=== PATIENT | female | born 1985 | race Caucasian/White ===

== ENCOUNTER 2019-06-07 17:55 | Inpatient (IN) | payer BC, OTHER ==
[~2019-06-07] VITALS: Ht 162.6 cm; Wt 58.5 kg
[2019-06-07 18:18] VITALS: BP_SYST 144
--- NOTE | 2019-06-07 18:22 | NUR ---
Patient to ER bed 07 to gown for evaluation. Side rails up.
--- NOTE | 2019-06-07 19:01 | NUR ---
Patient brought in complaining of abdominal pain with nausea, vomiting, diarrhea and dizziness x 3 days progressively worsening. Patient reports 4 episodes of vomitinign and diarrhea today. Patient has history of Crohn's disease with last flare up when she was 24. Currently on Humira and Pentasa. Pain 10/10, sharp stabbing. No other complaints/injuries per patient or as noted. will continue to monitor.
[2019-06-07] MEDS ORDERED: NACL 0.9% 1,000 ML IV ONE ×2 (19:23→20:00)
[2019-06-07] MEDS ORDERED: KETOROLAC TROMETHAMINE 30 MG VIAL IVP ONE (19:30)
[2019-06-07] MEDS ORDERED: ONDANSETRON HCL 4 MG/2 ML VIAL IVP ONE (19:30)
--- NOTE | 2019-06-07 19:35 | NUR ---
# 20 gauge angiocath placed to RAC. Use of asceptic technique. Opsite placed over site. Blood return noted. Blood for lab drawn from site. Flushed with 10 cc of normal saline. No evidence of infiltration noted. Patient tolerated well.
[2019-06-07] MEDS ORDERED: ADAL40SY SQ (19:39)
[2019-06-07] MEDS ORDERED: DEXT30TA10 PO (19:39)
[2019-06-07] MEDS ORDERED: OMEP40CA33 PO (19:39)
[2019-06-07] MEDS ORDERED: LAMO200T2 PO (19:39)
[2019-06-07] MEDS ORDERED: LORA2TAB95 PO (19:39)
[2019-06-07] MEDS ORDERED: MESA500C PO (19:39)
[2019-06-07] MEDS ORDERED: SERT100T PO (19:39)
[2019-06-07] MEDS ORDERED: BENI20 IM (19:40)
--- NOTE | 2019-06-07 19:43 | NUR ---
ER Dr. Wilcox at bedside examining patient.
[2019-06-07 19:56] LABS: BILIRUBIN,URINE NEGATIVE (NEGATIVE); BLOOD, URINE NEGATIVE (NEGATIVE); CLARITY/URINE CLEAR (CLEAR); COLOR,URINE YELLOW (YELLOW); GLUCOSE,URINE NEGATIVE (NEGATIVE); KETONES,URINE NEGATIVE (NEGATIVE); NITRITE, URINE NEGATIVE (NEGATIVE); PH,URINE 5.5 (5.0-8.0); PROTEIN URINE NEGATIVE (NEGATIVE); UROBILINOGEN,URINE 0.2 (0.2-1.0)
[2019-06-07 19:59] LABS: BASOPHILS % (AUTO) 0.2 % (0.0-2.0); EOSINOPHILS % (AUTO) 0.5 % (0.0-4.0); HEMATOCRIT 37.3 % (36-48); HEMOGLOBIN 12.5 g/dL (12.0-16.0); LYMPHOCYTES # (AUTO) 1.5 K/uL (1.0-5.5); LYMPHOCYTES % (AUTO) 31.8 % (20.5-51.5); MEAN CORPUSCULAR HEMOGLOBIN 31 pg (27-31); MEAN CORPUSCULAR HGB CONC 34 % (32-36); MEAN CORPUSCULAR VOLUME 91 fL (79.0-98.0); MONOCYTES # (AUTO) 0.4 K/uL (0.0-1.0); NEUTROPHILS # (AUTO) 2.9 K/uL (1.8-7.7); NEUTROPHILS % (AUTO) 59.5 % (40.0-70.0); PLATELET COUNT (AUTO) 237 K/uL (130-430); RED BLOOD CELL COUNT(AUTO) 4.08 MIL/uL (4.2-6.2); RED CELL DISTRIBUTION WIDTH 13.6 % (9.0-15.0); WHITE BLOOD COUNT (AUTO) 4.8 K/uL (4.8-10.8)
[2019-06-07] MEDS ORDERED: MORPHINE 4 MG/ML INJ. SYRINGE IVP ONE ×2 (20:00→20:30)
[2019-06-07 20:01] LABS: CALCIUM 8.9 mg/dL (8.4-11.0); CREATININE 0.62 mg/dL (0.55-1.30); POTASSIUM 3.9 mmol/L (3.5-5.1)
[2019-06-07 20:07] LABS: ALBUMIN 3.3 g/dL (3.4-4.8); TOTAL BILIRUBIN 0.1 mg/dL (0.0-1.0)
[2019-06-07 20:09] LABS: LEUKOCYTE ESTERASE ,URINE TRACE (NEGATIVE)
[2019-06-07 20:10] LABS: BACTERIA,URINE FEW /HPF (None Seen)
[2019-06-07 20:11] LABS: MUCUS,URINE None Seen /LPF (None Seen)
[2019-06-07 20:13] LABS: RBC,URINE NONE SEEN /HPF (0-3)
--- NOTE | 2019-06-07 21:07 | NUR ---
Medication reconciliation completed with information provided by patient. Any prior medication reconciliation on file was reviewed and corrected.
[2019-06-07] MEDS ORDERED: cefTRIAXone 1 GM in D5W 50 ML IV ONE (21:30)
[2019-06-07] MEDS ORDERED: cefTRIAXone 1 GM VIAL ONE (21:46)
[2019-06-07] MEDS ORDERED: fentaNYL CITRATE/PF 100 MCG/2 ML AMP IVP ONE (22:00)
--- NOTE | 2019-06-07 23:09 | NUR ---
Patient states she is full code.
--- NOTE | 2019-06-08 00:43 | NUR ---
Dr. Wilcox speaking to Dr. Quinn for admission.
[2019-06-08] MEDS ORDERED: NACL 0.9% 1,000 ML IV SCH (01:01)
--- NOTE | 2019-06-08 01:01 | NUR ---
Patient will be admitted to care of Dr. Quinn. Admitted to Med Surg unit. Will go to room 134 B. Belongings list completed. Summary report printed. Report will be given at bedside.
[2019-06-08] MEDS ORDERED: MORPHINE 2 MG/ML INJ. SYRINGE IVP PRN (01:15)
[2019-06-08 01:32] VITALS: BP_SYST 113
--- NOTE | 2019-06-08 01:32 | NUR ---
ADMISSION: The patient, YELENA FLORES, 33 y/o, F admitted by CHANDA GILL MD,WITH THE DIAGNOSIS OF CROHN'S EXACERBATION TO ROOM 134 B , was given written information regarding hospital policies, unit procedures and contact persons.
--- NOTE | 2019-06-08 02:25 | NUR ---
PAGED PAGING THE BRAND STRATEGIST PHYSICIAN, DR. GILL, FOR ORDERS AND SPOKE WITH DARIA
--- NOTE | 2019-06-08 03:10 | NUR ---
paged second page for Dr Navarro, dialed . s/w Joyce.
--- NOTE | 2019-06-08 03:22 | NUR ---
GI Consultation Paged Reason for consultation: crohn's exacerbation Was consult called: Yes Person who was notified: Darlene Consulting Physician: Dr Kearney; Dr Kenyon is on-call Export Freight Specialist Specialty: Gastroenterology Export Freight Specialist Ordered By: Dr Navarro
[2019-06-08] MEDS: MORPHINE 2 MG/ML INJ. SYRINGE IVP PRN ×3 (03:31→20:49)
[2019-06-08] MEDS: ONDANSETRON HCL 4 MG/2 ML VIAL IVP PRN ×3 (06:01→20:57)
[2019-06-08] MEDS ORDERED: LORazepam 1 MG TABLET PO PRN (07:30)
[2019-06-08 08:00] VITALS: BP_SYST 100
[2019-06-08] MEDS: HYDROmorphone 1 MG INJ. 1 MG/ML AMPUL IVP PRN ×6 (08:28→22:33)
[2019-06-08] MEDS: cefTRIAXone 1 GM IVPB PREMIX 50 ML IV SCH (08:34)
[2019-06-08] MEDS: MESALAMINE 400 MG CAPSULE.DR PO SCH ×2 (08:34→20:57)
[2019-06-08] MEDS: SERTRALINE HCL 50 MG TABLET PO SCH (08:38)
[2019-06-08] MEDS: LamoTRIgine 100 MG TABLET PO SCH (08:39)
[2019-06-08] MEDS ORDERED: PANTOPRAZOLE SODIUM 40 MG TAB PO SCH (09:00)
[2019-06-08] MEDS ORDERED: DICYCLOMINE HCL 20 MG/2 ML AMP IM SCH (09:15)
[2019-06-08] MEDS ORDERED: D5/0.45 NS 1,000 ML IV SCH (14:30)
[2019-06-08 14:57] VITALS: BP_SYST 115
[2019-06-08] MEDS ORDERED: HUMIRA 40 MG SUBCUT SCH (15:00)
[2019-06-08] MEDS ORDERED: COMMUNICATION ORDER XX ONE (15:00)
[2019-06-08] MEDS ORDERED: fentaNYL CITRATE/PF 100 MCG/2 ML AMP IVP ONE ×2 (15:30)
[2019-06-08] MEDS ORDERED: MIDAZOLAM HCL 5 MG/5 ML VIAL IVP ONE (15:30)
[2019-06-08] MEDS ORDERED: PROPOFOL 200MG/ 20ML VIAL (DIPRIVAN) IV ONE (15:30)
[2019-06-08] MEDS ORDERED: LR 1,000 ML IV.SOLN IV ONE (15:30)
[2019-06-08] MEDS ORDERED: DIATR MEGLU/DIATRIZ SOD 30 ML SOLUTION PO ONE (16:55)
--- NOTE | 2019-06-08 19:30 | NUR ---
Opening notes Pt asleep, respirations even and unlabored, no s/s distress noted. Saline lock R. FA 20G clear and patent. Call light within reach. Bed low, locked, siderails up x2. To monitor.
--- NOTE | 2019-06-08 20:07 | NUR ---
Off the floor for CT scan via wheelchair.
[2019-06-08] MEDS ORDERED: IOHEXOL 100 ML IV ONE (20:12)
--- NOTE | 2019-06-08 20:27 | NUR ---
Back from CT scan. No distress noted. Addendum: 06/09/19 at 0506 by Iman Lisa RN MG MINAYA removed catheter tip intact. Tolerated well.
[2019-06-08 20:47] VITALS: BP_SYST 112
[2019-06-08] MEDS: PANTOPRAZOLE SODIUM 40 MG/VIAL (PROTONIX) IVP SCH (20:48)
[2019-06-08] MEDS: POLYETHYLENE GLYCOL 3350, 17 GM/ POWD.PACK PO SCH (20:49)
--- NOTE | 2019-06-08 21:13 | NUR ---
Paged Pt requests for Ativan order. Paged Dr. Navarro, awaiting callback.
--- NOTE | 2019-06-08 21:15 | NUR ---
PAGED PAGING THE MANAGER SOFTWARE DEVELOPMENT PHYSICIAN, DR. GILL, FOR ORDERS, SPOKE WITH ANIA
--- NOTE | 2019-06-08 21:42 | NUR ---
Received MD callback Received callback from Dr. aNvarro and order rec'd for Ativan 1mg IVP x one. Will carry out.
[2019-06-08] MEDS ORDERED: LORazepam 2 MG/ML VIAL IVP ONE (21:45)
--- NOTE | 2019-06-08 22:33 | NUR ---
Pain Pt alert, awake, no s/s distress noted. Pt c/o 06/11 abd pain. Medicated with Dilaudid 1mg IVP as needed, VSS. Pt encouraged to call for assistance. at bedside. Call light within reach. To monitor.
--- NOTE | 2019-06-09 00:46 | NUR ---
Rounds Pt asleep, no s/s distress noted. Call light within reach. Safety measures maintained. Pt's at bedside.
[2019-06-09 01:57] VITALS: BP_SYST 114
[2019-06-09] MEDS: HYDROmorphone 1 MG INJ. 1 MG/ML AMPUL IVP PRN ×7 (01:57→20:15)
--- NOTE | 2019-06-09 01:57 | NUR ---
Pain Pt c/o severe abd pain, medicated with Dilaudid 1mg IVP as needed. IVF infusing at ordered rate on R. FA 20G no s/s infiltration. at bedside. Call light within reach. To monitor.
--- NOTE | 2019-06-09 05:04 | NUR ---
Pain Pt awake, ambulated to the bathroom. Pt c/o abd pain 8/10, medicated with Dilaudid 1mg IVP as needed. IVF infusing R. FA 22G no s/s infiltration. Call light within reach. To monitor.
[2019-06-09 06:31] LABS: HEMATOCRIT 31.9 % (36-48); HEMOGLOBIN 10.7 g/dL (12.0-16.0); MEAN CORPUSCULAR HEMOGLOBIN 31 pg (27-31); MEAN CORPUSCULAR HGB CONC 34 % (32-36); MEAN CORPUSCULAR VOLUME 92 fL (79.0-98.0); PLATELET COUNT (AUTO) 189 K/uL (130-430); RED BLOOD CELL COUNT(AUTO) 3.49 MIL/uL (4.2-6.2); RED CELL DISTRIBUTION WIDTH 13.3 % (9.0-15.0); WHITE BLOOD COUNT (AUTO) 2.4 K/uL (4.8-10.8)
--- NOTE | 2019-06-09 06:41 | NUR ---
Closing notes Pt asleep, respirations even and unlabored, no s/s distress noted. IVF infusing at ordered rate R FA 20G clear and patent. All needs met throughout the night. Pt denies having a BM during the night. Call light within reach. Family at bedside. To endorse to AM nurse.
[2019-06-09 06:42] LABS: ALANINE AMINOTRANSFERASE 15 U/L (12-78); ALBUMIN 2.9 g/dL (3.4-4.8); ASPARTATE AMINOTRANSFERASE 16 U/L (10-37); CALCIUM 8.6 mg/dL (8.4-11.0); CHLORIDE 112 mmol/L (98-107); CREATININE 0.66 mg/dL (0.55-1.30); GLUCOSE 103 mg/dL (70-99); POTASSIUM 3.9 mmol/L (3.5-5.1); SODIUM SERUM 141 mmol/L (136-145); TOTAL BILIRUBIN 0.2 mg/dL (0.0-1.0); UREA NITROGEN, BLOOD 3 mg/dL (8-21)
[2019-06-09 06:43] LABS: ANION GAP < 3 (5-15); GFR AFRICAN AMERICAN 132 mL/min (>90)
[2019-06-09 07:22] LABS: ERYTHROCYTE SEDIMENTATION RATE 3 MM/HR (0-20)
[2019-06-09 07:42] VITALS: BP_SYST 107
[2019-06-09] MEDS: PANTOPRAZOLE SODIUM 40 MG/VIAL (PROTONIX) IVP SCH ×2 (07:50→20:41)
[2019-06-09] MEDS: cefTRIAXone 1 GM IVPB PREMIX 50 ML IV SCH (07:51)
--- NOTE | 2019-06-09 08:00 | NUR ---
AM rounds: Awake, oriented. Complaints of sharp throbbing abdominal pain /, denies nausea nor vomiting. IV fluids of D51/2 NS at 75 cc/hr infusing on the right forearm gauge 22 angiocath, patent, intact, no redness noted. Encouraged patient to eat even just small amount. Has ensure with meals. Call light within reach.
[2019-06-09] MEDS: D5/0.45 NS 1,000 ML IV SCH ×2 (08:02→20:42)
[2019-06-09] MEDS: LamoTRIgine 100 MG TABLET PO SCH (08:02)
[2019-06-09] MEDS: SERTRALINE HCL 50 MG TABLET PO SCH (08:02)
[2019-06-09] MEDS: POLYETHYLENE GLYCOL 3350, 17 GM/ POWD.PACK PO SCH ×2 (08:02→20:42)
[2019-06-09] MEDS: MESALAMINE 400 MG CAPSULE.DR PO SCH ×2 (08:06→20:41)
--- NOTE | 2019-06-09 08:55 | NUR ---
CONSULTATION PAGED REASON FOR CONSULTATION:ANXIETY, DEPRESSION WAS CONSULT CALLED?Y PERSON WHO WAS NOTIFIED:JEAN PAUL CONSULTING PHYSICIAN:SITA KHAN (ZAINAB JAVIER CONCRETE GUN OPERATOR) ICT MANAGERS SPECIALTY:PSYCHE ICT MANAGERS PHONE NUMBER:[phone] REQUESTING PHYSICIAN:CALLIE LOTT
--- NOTE | 2019-06-09 10:15 | NUR ---
Rounds; Patient is in pain 6/10, crying. Offered morphine, but prefers to wait for the dilaudid which is not due yet. Patient says she will wait for the dilaudid.
[2019-06-09 10:19] LABS: ATYPICAL LYMPHOCYTES % 0 % (0-0); BAND % (MANUAL) 0 % (0-6); BASOPHILS % (MANUAL) 0 % (0-2); EOSINOPHILS % (MANUAL) 1 % (0-7); LYMPHOCYTES % (MANUAL) 48 % (20-46); MONOCYTES % (MANUAL) 8 % (0-11)
[2019-06-09 10:53] VITALS: BP_SYST 103
--- NOTE | 2019-06-09 11:00 | NUR ---
Pain management: Medicated with dilaudid 1 mg for abdominal pain. Patient is ambulatory to the bathroom with the steady gait.
--- NOTE | 2019-06-09 11:51 | NUR ---
Case Management Updated Nick CM by phone.
[2019-06-09] MEDS: ONDANSETRON HCL 4 MG/2 ML VIAL IVP PRN (14:07)
--- NOTE | 2019-06-09 14:11 | NUR ---
Diet: Patient had 2 cups of jelo, ensure. Wants to try pudding, informed patient that it does not fall under clear liquid.
[2019-06-09] MEDS ORDERED: DICYCLOMINE HCL 10 MG CAPSULE PO PRN (14:30)
[2019-06-09 16:39] VITALS: BP_SYST 101
[2019-06-09] MEDS ORDERED: SODIUM PHOSPHATE,MONO-DIBASIC 133 ML ENEMA RC ONE (17:00)
--- NOTE | 2019-06-09 18:28 | NUR ---
End of shift: Seen by Dr. Kenyon. Fleet enema given, had small amount of soft BM.
[2019-06-09 19:00] VITALS: BP_SYST 103
--- NOTE | 2019-06-09 19:15 | NUR ---
change of shift.pt.presents quiescent affect.pt viewing tv programming.@bedside.pt.presents iv access;intact;patent iv fluids infusing.pt.presents diet status;advanced:full liquids.pt.presents process;diagnosis;chron's/colitis.pt.capable to ambulated w/out assistance.call light/telephone w/in the reach of the pt.
--- NOTE | 2019-06-09 19:30 | NUR ---
i have disconnected the iv fluids.pt.to shower.pt.capable to ambulate steady gait;w/out assistance.
[2019-06-09 20:00] VITALS: BP_SYST 103
--- NOTE | 2019-06-09 20:00 | NUR ---
pt.return to bedside.pt.assessed v/s assessed;values w/in normal limits.i have administered dilaudid;1mg ivp;to f/u re;pain medication efficacy per pain mgx protocol.i have apprised the pt.that snacks/beverages are available w/in the shift.pt.had requested juice;apple, pudding;vanilla,jello.i have provided the snacks.iv fluids re-connected.no additional requests posited @this hour.general status stable. respiratory status stable@room air.02-sat%=100%.call light/telephone w/in reach of the pt.i have provide the room telephone indication.pt.had returned the demonstration.
--- NOTE | 2019-06-09 20:30 | NUR ---
pt.has utilized the restroom.pt.capable to ambulate w/out assistance.
--- NOTE | 2019-06-09 21:00 | NUR ---
2100pmedications administered.pty had requested additional snacks.i have provide the snacks. miralax administered:mixture w/apple juice.
--- NOTE | 2019-06-09 21:30 | NUR ---
pt.has utilized the restroom.pt.capable to ambulate w/out assistance.
--- NOTE | 2019-06-09 22:00 | NUR ---
pt.assessed.pt.presents quiescent affect;calm,.pt.viewing tv programming.no requests posited @this hour. general status stable.respiratory status stable.call light/telephone w/in reach of the pt. Addendum: 06/10/19 at 0355 by Kamaljit Casey RN pt.had requested ativan;ivp.i apprised the pt.that the ativan order is ativan;3mg po q-8hrs/p;pt.had requested dilaudid;2mg ivp. to page re;pt's requests.pt.stated the ativan ivp was efficacious last night;06/08/19.
--- NOTE | 2019-06-09 22:30 | NUR ---
pt.had utilized the restroom.i have reviewed the dr's orders;the md has ordered stool sample;wbc,cx/c-diff.i have apprised the pt.that a stool sample is needed.the pt apprised me that she had provided a stool sample earlier w/in the day-shift.i cannot locate the confirmation of a stool sample collection w/in the day shift. Addendum: 06/10/19 at 0410 by Kamaljit Casey RN i have provided/placed the stool sample recepticle;hat in the toilet.i have apprised the pt.
[2019-06-09] MEDS ORDERED: HYDROmorphone 2 MG/ML VIAL IVP SCH (23:00)
[2019-06-09] MEDS ORDERED: LORazepam 2 MG/ML VIAL IVP SCH (23:00)
--- NOTE | 2019-06-09 23:00 | NUR ---
galileo martinez had return the page;i apprised of the pt's requests;[id number] ivp.the dilaudid 1mg is not completely efficacious. ordered dilaudid;2mg ivp x1.i apprised that the pt.preference is ativan;1mg ivp;it was administered 06/08/19@security shift manager and was efficacious. ordered ativan;1mg ivp x1 and place the pt. upon continuos pulse oximeter to monitor the 02-sat;2/t administration of the medicationss;dilaudid/ativan.i have administered dialudid;2mg ivp;to f/u re;pain medication efficacy and ativan:1mg ivp .i have placed the pt.upon pulse oximeter;continuous.i have apprised the pt.for the o2-sat%monitoring.
[2019-06-10] VITALS (7 sets, daily range): BP systolic 96–133
--- NOTE | 2019-06-10 | NUR ---
pt.assessed pt.presents quiescent affect;calm,somnolent.o2-sat%=98%.iv fluids infusing.general status stable.respiratory status stable;unlabored w/in normal limits;parameters.breathing pattern/character w/in normal limits.
--- NOTE | 2019-06-10 01:30 | NUR ---
pt.had awakened pt.had soiled the bed;w stool.pt.requested to shower.bed linen changed . Addendum: 06/10/19 at 0423 by Kamaljit Casey RN v/s assessed/values w/in normal limits;b/p values note low;pt.presents low value b/p as her normal limits per review of the v/s graphics.
--- NOTE | 2019-06-10 02:00 | NUR ---
pt,assessd.pt.presents quiescent affect;calm.somnolent./iv fluids infusing.general staus stable.respiratory status stable:02-sat%=100%.call light/telephone w/in reach of the pt.
[2019-06-10] MEDS: HYDROmorphone 1 MG INJ. 1 MG/ML AMPUL IVP PRN ×7 (02:03→21:04)
--- NOTE | 2019-06-10 04:00 | NUR ---
pt.has utilized the restroom.pt assessed.pt.has produced the stool sample;i have sent to lab.iv fluids infusing.no requests posited at this hour.pt.presents quiescent affect;calm.general status stable.respiratory status stable.call light/telephone w/in reach of the pt.
--- NOTE | 2019-06-10 05:00 | NUR ---
pt.had requested pain medication.i have administered;dilaudid;1mg ivp.to f/u re;pain medication efficacy. no additional requests posited @this hour.
[2019-06-10 05:44] LABS: BASOPHILS % (AUTO) 0.2 % (0.0-2.0); EOSINOPHILS # (AUTO) 0.1 K/uL (0.0-0.4); EOSINOPHILS % (AUTO) 1.7 % (0.0-4.0); HEMOGLOBIN 10.7 g/dL (12.0-16.0); LYMPHOCYTES # (AUTO) 1.3 K/uL (1.0-5.5); LYMPHOCYTES % (AUTO) 34.3 % (20.5-51.5); MEAN CORPUSCULAR HEMOGLOBIN 31 pg (27-31); MEAN CORPUSCULAR HGB CONC 34 % (32-36); MEAN CORPUSCULAR VOLUME 92 fL (79.0-98.0); MONOCYTES # (AUTO) 0.4 K/uL (0.0-1.0); MONOCYTES % (AUTO) 9.3 % (1.7-9.3); NEUTROPHILS # (AUTO) 2.1 K/uL (1.8-7.7); NEUTROPHILS % (AUTO) 54.5 % (40.0-70.0); PLATELET COUNT (AUTO) 192 K/uL (130-430); RED BLOOD CELL COUNT(AUTO) 3.46 MIL/uL (4.2-6.2); RED CELL DISTRIBUTION WIDTH 13.4 % (9.0-15.0)
--- NOTE | 2019-06-10 06:12 | NUR ---
pt assessed.pt.presents quiescent affect;calm,somnolent.iv access;intact;patent.iv fluids infusing.general status stable.respiratory status stable;unlabored.pt.capable to reposition self.call light/telephone w/in reach of the pt.
[2019-06-10 07:16] LABS: WHITE BLOOD COUNT (AUTO) 3.9 K/uL (4.8-10.8)
--- NOTE | 2019-06-10 07:58 | NUR ---
INITIAL NOTE RECEIVED PATIENT FROM TOWER EQUIPMENT INSTALLER. PATIENT RESTING IN BED. EASILY AROUSABLE. A/OX4. PATIENT C/O ABDOMINAL PAIN; WILL MEDICATE. PT REFUSE COOLING MEASURES. ABLE TO MAKE NEEDS KNOWN. NO ACUTE DISTRESS. RESPIRATION EVEN AND UNLABORED. SKIN WARM AND DRY. IV INTACT AND PATENT. PT OLIVIA IV FLUID ORDERED. BED IN LOW AND LOCKED POSITION. SIDERAIL UPX2. BED ALARM ON. CALL LIGHT IN REACH. CONT TO MONITOR.
[2019-06-10] MEDS: cefTRIAXone 1 GM IVPB PREMIX 50 ML IV SCH (08:20)
[2019-06-10] MEDS: POLYETHYLENE GLYCOL 3350, 17 GM/ POWD.PACK PO SCH ×2 (08:20→21:00)
[2019-06-10] MEDS: PANTOPRAZOLE SODIUM 40 MG/VIAL (PROTONIX) IVP SCH ×2 (08:20→21:00)
[2019-06-10] MEDS: ONDANSETRON HCL 4 MG/2 ML VIAL IVP PRN ×2 (08:21→21:01)
[2019-06-10] MEDS: LamoTRIgine 100 MG TABLET PO SCH (08:21)
[2019-06-10] MEDS: SERTRALINE HCL 50 MG TABLET PO SCH (08:21)
[2019-06-10] MEDS: MESALAMINE 400 MG CAPSULE.DR PO SCH ×2 (08:21→21:00)
--- NOTE | 2019-06-10 08:25 | NUR ---
MEDS ALL DUE MEDS ADMINISTERED; OLIVIA WELL. DILAUDID ADMINISTERED FOR SEVERE ABDOMINAL PAIN; OLIVIA WELL. BP 112/65 HR 82. CONT TO MONITOR
[2019-06-10] MEDS: D5/0.45 NS 1,000 ML IV SCH (11:43)
--- NOTE | 2019-06-10 11:45 | NUR ---
NOTE PATIENT C/O SEVERE ABDOMINAL PAIN. PATIENT REFUSED ICE PACK. DILAUDID ADMINISTERED ORDERED FOR PAIN; OLIVIA WELL. VS STABLE. ALL NEEDS MET. BED IN LOW AND LOCKED POSITION. SIDERAIL UP X2. BED ALARM ON. CONT TO MONITOR
--- NOTE | 2019-06-10 11:56 | NUR ---
Dietitian Recommendations *Recommend continuing Full Liquid diet per MD orders. *If/when medically appropriate, advance diet to Soft Low Fiber Low Fat Gluten Free. *Consider snacks in between meals. Please see Nutritional Assessment for details. JERI WU
[2019-06-10] MEDS: LORazepam 1 MG TABLET PO PRN (14:21)
--- NOTE | 2019-06-10 14:50 | NUR ---
MED PATIENT C/O PAIN TO ABDOMEN. VS STABLE. PAIN MEDICATION ADMINISTERED ORDERED, OLIVIA WELL. ALL NEEDS MET. CONT TO MONITOR
--- NOTE | 2019-06-10 15:00 | NUR ---
PAGED (PSYCH) REGARDING CONSULT. AWAITING TO BE SEEN BY .
--- NOTE | 2019-06-10 16:20 | NUR ---
SEEN AND EXAMINED BY AT BEDSIDE. WILL ORDER EGD FOR TOMORROW. EXPLAINED TO PATIENT
--- NOTE | 2019-06-10 16:31 | NUR ---
Financial Services Representative: met with pt. who has depression anxiety AGATE SETTER met with pt. who confirmed that she has been formally Dx. in 2009 with Anxiety Depression and Bipolar. She stated she sees a psychiatrist once a month Fransisco Lowe from [facility]. She has been seeing him for about 6-7 yrs. She stated that she takes her meds. on a regular basis. She denied ever feeling suicidal as she has a 1 and 3 year old at home with her fiance. Pt. has family support as her parents reside nearby. Pt. stated she did not need any resources. Pt. did not have any questions for AGATE SETTER who will remain available as needed.
--- NOTE | 2019-06-10 18:05 | NUR ---
PAIN MED PATIENT C/O SEVERE PAIN TO ABDOMEN. PT REFUSE ICE PACK. VS STABLE. DILAUDID ADMINISTERED ORDERED, OLIVIA WELL. CONT TO MONITOR. CALL LIGHT IN REACH
--- NOTE | 2019-06-10 19:15 | NUR ---
CLOSING NOTE PATIENT RETURNING FROM BATHROOM WITH STEADY GAIT. STABLE. NO ACUTE DISTRESS. NO SOB. RESPIRATION EVEN AND UNLABORED. SKIN WARM AND DRY TO TOUCH. IV INTACT AND PATENT. OLIVIA IVF ORDERED. INFORMED PATIENT TO BE NPO AFTER MIDNIGHT DUE TO EGD PROCEDURE TOMORROW. ALL NEEDS MET. CALL LIGHT IN REACH. ENDORSED TO MEGHAN HERNADEZ
--- NOTE | 2019-06-10 19:20 | NUR ---
OPENING NOTE RECEIVED CARE OF PT AND SBAR REPORT. PATIENT RETURNING FROM BATHROOM WITH STEADY GAIT. VSS. NO ACUTE DISTRESS. NO SOB. RESPIRATION EVEN AND UNLABORED. SKIN WARM AND DRY TO TOUCH. PT REPORTS TOLERABLE LEVEL OF PAIN AT THIS TIME. IV INTACT AND PATENT. INFORMED PATIENT TO BE NPO AFTER MIDNIGHT DUE TO EGD PROCEDURE TOMORROW. SAFETY PRECAUTIONS IN PLACE. CALL LIGHT IN REACH. WILL MONITOR.
--- NOTE | 2019-06-10 20:30 | NUR ---
SHOWER. PT TOOK SHOWER. SUPPLIES PROVIDED. NO S/S OF DISTRESS. SAFETY MAINTAINED. WILL MONITOR.
--- NOTE | 2019-06-10 21:04 | NUR ---
PAIN/DILAUDID PT REPORTED SEVERE PAIN. DILAUDID 1 MG IVP ADMINISTERED. PT REPORTING SHE DID NOT "TASTE" THE NORMAL SALINE AND "DOESN'T FEEL" THE DILAUDID. NEW IV SITE TO BE STARTED PT BELIEVES SITE IS INFILTRATED.
--- NOTE | 2019-06-10 21:45 | NUR ---
IV PLACEMENT: #22 gauge angiocath placed to LEFT HAND BY SATYA LEE. Use of asceptic technique. Opsite placed over site. Blood return noted. Flushed with 10 cc of normal saline. No evidence of infiltration noted. Patient tolerated WELL.
[2019-06-10] MEDS: MORPHINE 2 MG/ML INJ. SYRINGE IVP PRN (22:00)
[2019-06-11] VITALS: BP_SYST 103
[2019-06-11] MEDS: HYDROmorphone 1 MG INJ. 1 MG/ML AMPUL IVP PRN ×7 (00:05→21:06)
[2019-06-11] MEDS: D5/0.45 NS 1,000 ML IV SCH ×3 (00:05→15:58)
--- NOTE | 2019-06-11 00:05 | NUR ---
NPO/PAIN PT REPORTED SEVERE PAIN. DILAUDID 1 MG IVP ADMINISTERED. MEDICATION EXPLAINED TO PT, PT VERBALIZED UNDERSTANDING. NPO CONE PLACED AT BEDSIDE, PT EDUCATED REGARDING NPO STATUS. SAFETY MAINTAINED. WILL MONITOR.
--- NOTE | 2019-06-11 03:27 | NUR ---
PAIN/DILAUDID PT REPORTED SEVERE PAIN. DILAUDID 1 MG IVP ADMINISTERED. SAFETY MAINTAINED. CALL LIGHT IS WITH PT. WILL MONITOR.
[2019-06-11 05:35] LABS: PROTHROMBIN TIME 10.2 SECS (9.5-12.5)
--- NOTE | 2019-06-11 06:28 | NUR ---
CLOSING NOTE PT GIVEN DILAUDID 1 MG IVP FOR SEVERE PAIN. PAIN MANAGED THROUGHOUT SHIFT. VSS. PT NPO FOR EGD TODAY. NO S/S OF ACUTE DISTRESS. BREATHING IS UNLABORED. SAFETY AND FALL PRECAUTIONS MAINTAINED. ALL NEEDS MET DURING SHIFT. WILL ENDORSE TO DAY SHIFT RN.
--- NOTE | 2019-06-11 07:50 | NUR ---
opening note patient is resting in bed, alert and oriented, assessment completed, educated fire control technician g light system and plan of care, patient verbalized understanding, IV fluids running, patient is NPO for EGD today, patient verbalized understanding, fall/safety precautions in place.
[2019-06-11 08:00] VITALS: BP_SYST 107; BP_SYST 123
[2019-06-11] MEDS: POLYETHYLENE GLYCOL 3350, 17 GM/ POWD.PACK PO SCH ×2 (09:00→21:00)
[2019-06-11] MEDS: MESALAMINE 400 MG CAPSULE.DR PO SCH ×2 (09:35→21:04)
[2019-06-11] MEDS: cefTRIAXone 1 GM IVPB PREMIX 50 ML IV SCH (09:35)
[2019-06-11] MEDS: PANTOPRAZOLE SODIUM 40 MG/VIAL (PROTONIX) IVP SCH ×2 (09:35→21:05)
[2019-06-11] MEDS: LamoTRIgine 100 MG TABLET PO SCH (09:35)
[2019-06-11] MEDS: SERTRALINE HCL 50 MG TABLET PO SCH (09:35)
--- NOTE | 2019-06-11 09:35 | NUR ---
medications I talked to the GI lab, patient's EGD will be at 1500 and it is okay for her to take her medications, patient verbalized understanding, educated on medication uses and side effects, patient verbalized understanding, no other needs addressed at this time, fall/safety precautions in place, IV fluids running, Dr Briscoe came for rounds.
--- NOTE | 2019-06-11 10:22 | NUR ---
CONSULTATION PAGED/CALLED Reason for Consultation: FOLLOW UP Person Who was Notified: SPOKE TO AMRIT FROM OFFICE. Consulting Physician: Boiling House Hand Specialty: PSYCH Ordering Physician:
--- NOTE | 2019-06-11 10:28 | NUR ---
CONSULTATION PAGED/CALLED Reason for Consultation: FOLLOW UP Person Who was Notified: SPOKE TO AMRIT FROM OFFICE. Consulting Physician: Music Industry Internship Specialty: PSYCH Ordering Physician:
[2019-06-11] MEDS: MORPHINE 2 MG/ML INJ. SYRINGE IVP PRN ×4 (10:33→22:35)
--- NOTE | 2019-06-11 11:10 | NUR ---
rounds assisted patient with going to the bathroom and back to bed, no other needs addressed at this time, IV fluids running, fall/safety precautions in place.
[2019-06-11 12:30] VITALS: BP_SYST 117
--- NOTE | 2019-06-11 13:48 | NUR ---
patient off unit went to OR for EGD.
[2019-06-11] MEDS ORDERED: ONDANSETRON HCL 4 MG/2 ML VIAL IVP ONE (13:50)
[2019-06-11] MEDS ORDERED: MIDAZOLAM HCL 5 MG/5 ML VIAL IVP ONE (13:50)
[2019-06-11] MEDS ORDERED: LR 1,000 ML IV.SOLN IV ONE (13:50)
[2019-06-11] MEDS ORDERED: PROPOFOL 200MG/ 20ML VIAL (DIPRIVAN) IV ONE (13:50)
[2019-06-11] MEDS ORDERED: fentaNYL CITRATE/PF 100 MCG/2 ML AMP IVP ONE (13:50)
[2019-06-11] MEDS ORDERED: LR 1,000 ML IV SCH (14:51)
[2019-06-11] MEDS ORDERED: HYDROmorphone 1 MG INJ. 1 MG/ML AMPUL IVP PRN (15:00)
[2019-06-11] MEDS ORDERED: HYDROmorphone 2 MG/ML VIAL IVP PRN ×2 (15:00)
[2019-06-11] MEDS ORDERED: MEPERIDINE HCL/PF 25 MG/ML DISP.SYRIN IVP PRN (15:00)
--- NOTE | 2019-06-11 15:30 | NUR ---
patient back on unit in stable condition.
[2019-06-11] MEDS: ONDANSETRON HCL 4 MG/2 ML VIAL IVP PRN (16:05)
[2019-06-11 16:44] VITALS: BP_SYST 118
--- NOTE | 2019-06-11 17:06 | NUR ---
prn pain medication I spoke to Dr Briscoe about pharmacy having to discontinued her PRN MD timothy okayed for her to continue with the pain medication, educated patient on med use and side effects, patient verbalized understanding, no other needs at this time, fall/safety precautions in place, IV fluids running.
[2019-06-11 17:40] VITALS: BP_SYST 118
--- NOTE | 2019-06-11 18:49 | NUR ---
closing note patient is resting in bed, eating her dinner, IV fluids running, patient was given pain medication earlier, no other needs addressed at this time, fall/safety precautions in place, will endorse report to noc shift nurse to continue with care, patient ambulates steady to the bathroom.
--- NOTE | 2019-06-11 19:35 | NUR ---
OPENING NOTE RECEIVED CARE OF PT AND SBAR REPORT. PT IS RESTING IN BED. VSS. NO ACUTE DISTRESS. NO SOB. RESPIRATION EVEN AND UNLABORED. SKIN WARM AND DRY TO TOUCH. NO S/S OF PAIN AT THIS TIME. IV INTACT AND PATENT. SAFETY PRECAUTIONS IN PLACE. CALL LIGHT IN REACH. WILL MONITOR.
[2019-06-11 20:00] VITALS: BP_SYST 116
--- NOTE | 2019-06-11 20:35 | NUR ---
SHOWER PT TOOK A SHOWER WITH ASSISTANCE FROM MISSAEL NAVAS.
--- NOTE | 2019-06-11 21:00 | NUR ---
IV RE-INSERTION: Complaining of pain to IV site. Restarted on RIGHT FOREARM. Successful after 1 attempt. Resumed current IVF of D51/2NS and regulated @ 75 CC per hour. Will observe for any signs of infiltration.
[2019-06-11] MEDS: LORazepam 1 MG TABLET PO PRN (22:35)
--- NOTE | 2019-06-11 22:35 | NUR ---
SNACKS/PRN MEDICATIONS PT BROUGHT VANILLA PUDDINGS AND JELLO PER REQUEST. PT REQUESTING MORPHINE FOR MODERATE ABDOMINAL PAIN AND ATIVAN FOR ANXIETY. PT GIVEN 2 MG OF MORPHINE IVP FOR MODERATE PAIN ORDERED. PT ALSO GIVEN ATIVAN 3 MG PO FOR AGITATION/ANXIETY. MEDICATIONS AND POTENTIAL SIDE EFFECTS EXPLAINED. PT VERBALIZED UNDERSTANDING. SAFETY AND FALL PRECAUTIONS ARE IN PLACE. WILL MONITOR.
[2019-06-12] MEDS: HYDROmorphone 1 MG INJ. 1 MG/ML AMPUL IVP PRN ×8 (00:35→21:57)
--- NOTE | 2019-06-12 00:35 | NUR ---
PAIN/DILAUDID PT REQUESTING DILAUDID FOR SEVERE ABDOMINAL PAIN. DILAUDID 1 MG IVP ADMINISTERED. PT IS RESTING IN BED. VSS. NO S/S OF ACUTE DISTRESS. PT ENCOURAGED TO CALL FOR ASSISTANCE. CALL LIGHT IS WITH PT. WILL MONITOR.
[2019-06-12 02:00] VITALS: BP_SYST 119
--- NOTE | 2019-06-12 02:40 | NUR ---
SLEEPING PT RESTING IN BED WITH EYES CLOSED. VISIBLE SYMMETRICAL RISE AND FALL OF CHEST TO ROOM AIR, BREATHING IS UNLABORED. NO S/S OF ACUTE DISTRESS. NO SIGN OF PAIN AT THIS TIME. PT APPEARS COMFORTABLE. SAFETY AND FALL PRECAUTIONS ARE IN PLACE. WILL MONITOR.
--- NOTE | 2019-06-12 03:36 | NUR ---
PAIN/DILAUDID PT REQUESTING DILAUDID FOR SEVERE ABDOMINAL PAIN. DILAUDID 1 MG IVP ADMINISTERED. PT IS RESTING IN BED. VSS. NO S/S OF ACUTE DISTRESS. PT DENIES FURTHER NEEDS. PT ENCOURAGED TO CALL FOR ASSISTANCE. CALL LIGHT IS WITH PT. WILL MONITOR.
[2019-06-12] MEDS: D5/0.45 NS 1,000 ML IV SCH ×3 (03:39→20:49)
--- NOTE | 2019-06-12 06:58 | NUR ---
CLOSING NOTE PT RESTING IN BED. PAIN MEDICATION ADMINISTERED. PT TOLERATED WELL. NO S/S OF ACUTE DISTRESS. PT TOLERATING ROOM AIR WELL, NO SOB . IVF INFUSING AT ORDERED RATE. ALL NEEDS MET DURING SHIFT. SAFETY MAINTAINED. WILL ENDORSE TO DAY SHIFT RN.
--- NOTE | 2019-06-12 07:45 | NUR ---
opening note patient is resting in bed, alert and oriented, assessment completed, educated blue print control clerk light system and plan of care, patient verbalized understanding, IV fluids running, fall/safety precautions in place, patient refused miralax at this time and patient requested that I not bring her scheduled medications until her prn dilaudid is due.
[2019-06-12 08:14] VITALS: BP_SYST 104
[2019-06-12] MEDS: POLYETHYLENE GLYCOL 3350, 17 GM/ POWD.PACK PO SCH ×2 (09:00→20:04)
[2019-06-12] MEDS: cefTRIAXone 1 GM IVPB PREMIX 50 ML IV SCH (09:39)
--- NOTE | 2019-06-12 09:40 | NUR ---
scheduled and prn medications patient is resting in bed, educated on medication uses and side effects, patient verbalized understanding, no other needs addressed at this time, IV fluids running, fall/safety precautions in place.
[2019-06-12] MEDS: MESALAMINE 400 MG CAPSULE.DR PO SCH ×2 (09:41→21:50)
[2019-06-12] MEDS: PANTOPRAZOLE SODIUM 40 MG/VIAL (PROTONIX) IVP SCH ×2 (09:41→19:54)
[2019-06-12] MEDS: LamoTRIgine 100 MG TABLET PO SCH (09:41)
[2019-06-12] MEDS: SERTRALINE HCL 50 MG TABLET PO SCH (09:41)
[2019-06-12] MEDS: ONDANSETRON HCL 4 MG/2 ML VIAL IVP PRN ×2 (09:49→19:54)
[2019-06-12 11:50] VITALS: BP_SYST 111
--- NOTE | 2019-06-12 11:51 | NUR ---
rounds patient is resting in bed, no signs of distress, no needs addressed at this time, IV fluids running, fall/safety precautions in place.
--- NOTE | 2019-06-12 12:40 | NUR ---
Dr Medina at the bedside about consult, spoke to the patient.
[2019-06-12 14:11] VITALS: BP_SYST 117
[2019-06-12] MEDS: MORPHINE 2 MG/ML INJ. SYRINGE IVP PRN ×4 (14:11→23:14)
--- NOTE | 2019-06-12 14:43 | NUR ---
Dr Johnson rounds came to see patient, explained to him about the pain medications that the patient gets and informed him that she does sleep after I given her the medications and patient sets an alarm for when the next one is due and those are the times that she wakes up other than that she is well rested after the medication.
[2019-06-12 15:12] VITALS: BP_SYST 117
--- NOTE | 2019-06-12 15:43 | NUR ---
prn pain medication patient is resting in bed, educated patient on med use and side effects, patient verbalized understanding, no other needs at this time, fall/safety precautions in place, IV fluids running.
[2019-06-12] MEDS ORDERED: BISACODYL 5 MG TABLET.DR (DULCOLAX) PO ONE (17:00)
--- NOTE | 2019-06-12 17:23 | NUR ---
medication patient is resting in bed, educated patient on med uses and side effects, patient verbalized understanding, no other needs at this time, fall/safety precautions in place, IV fluids running.
[2019-06-12] MEDS ORDERED: GOLYTELY / COLYTE SOLUTION 4 LITERS PO ONE (18:00)
--- NOTE | 2019-06-12 18:56 | NUR ---
closing note patient is resting in bed, eating her dinner, IV fluids running, patient was given pain medication, started on golytly for colonoscopy tomorrow 1500, patient will be NPO after midnight, no other needs addressed at this time, fall/safety precautions in place, will endorse report to noc shift nurse to continue with care, patient ambulates steady to the bathroom.
--- NOTE | 2019-06-12 19:25 | NUR ---
INITIAL NOTE RECEIVED PATIENT AWAKE, ALERT AND ORIENTED. NO SOB NOTED. COMPLAIN OF CONSTANT ABDOMINAL PAIN DUE TO HER DIAGNOSIS AND MILD NAUSEA. WILL MEDICATE FOR NAUSEA AND PAIN. VS STABLE. AMBULATES WITH STEADY GAIT. SKIN INTACT. NO PERIPHERAL EDEMA NOTED. IVF INFUSING. PATIENT IS ON CLEAR LIQUID AT THIS TIME AND RECEIVING BOWEL PREP FOR COLONOSCOPY TOMORROW. NPO AFTER MIDNIGHT, PATIENT IS AWARE. CARE AND MONITORING WILL BE PROVIDED PER PROTOCOL. CALL LIGHT WITHIN REACH. BED ALARM OFF PER PATIENT'S REQUEST. BED AT LOWEST POSITION AT ALL TIMES. NEEDS ATTENDED. KEPT WARM AND COMFORTABLE.
[2019-06-12 20:00] VITALS: BP_SYST 128
--- NOTE | 2019-06-12 20:00 | NUR ---
NAUSEA AND PAIN MED MEDICATED FOR NAUSEA AND ABDOMINAL PAIN. WILL CONTINUE TO MONITOR. PT EXPLAINED TO ME HER PAIN MEDICATION REGIMEN. DUE MEDS GIVEN WELL, TOLERATED WELL. NEEDS ATTENDED.
--- NOTE | 2019-06-12 21:20 | NUR ---
SHOWER PATIENT HAD A SHOWER. RESUMED IVF. GIVEN ICE WATER AND REMINDED ME OF HER PAIN MEDICATION ALONG WITH ANXIETY MED IN 30 MINS. NO OTHER COMPLAINTS. AT THE BEDSIDE.
[2019-06-12] MEDS: LORazepam 1 MG TABLET PO PRN (21:51)
--- NOTE | 2019-06-12 21:57 | NUR ---
PAIN/ANXIETY MED MEDICATED FOR PAIN AND ANXIETY MEDICATION PER PATIENT'S REQUEST. ADVISED TO CALL IF SHE FEELS DIZZY OR WEAK BEFORE AMBULATING. WILL CONTINUE TO MONITOR. NO OTHER COMPLAINTS.
--- NOTE | 2019-06-12 23:16 | NUR ---
TRANSFER OF CARE NO CHANGES FROM PREVIOUS ASSESSMENT. MEDICATED FOR PAIN 10 MINUTES AGO. NOT IN ACUTE DISTRESS. ENDORSED TO SATYA SALGADO.
--- NOTE | 2019-06-13 00:45 | NUR ---
[facility] of Care Handoff report received from Delon-Charge nurse. Will continue with plan of care.
[2019-06-13] MEDS: HYDROmorphone 1 MG INJ. 1 MG/ML AMPUL IVP PRN ×5 (00:59→13:24)
--- NOTE | 2019-06-13 00:59 | NUR ---
Patient is complaining of abd pain 9/10, sharp and throbbing. Provided patient with timothy BROWN per MD order, see eMAR for details. Patient ambulated to the restroom and back to bed independentlt with steady gait, no assistance needed. Voided urine. Patient also states that her BM has been making her buttocks really irritated due to the moisture. Provided patient with Zgaurd, and patient states that she will apply it herself. Encouraged patient to call for assistance. Call light is within reach.
[2019-06-13 01:34] VITALS: BP_SYST 117
--- NOTE | 2019-06-13 01:35 | NUR ---
RN NOTE RECEIVED REPORT FROM RN. PATIENT IS ASLEEP. NO DISTRESS NOTED AT THIS TIME. IVF INFUSING.
--- NOTE | 2019-06-13 01:38 | NUR ---
Endorsement of Care Handoff report given to Eddie. All needs have been met at this time.
--- NOTE | 2019-06-13 04:20 | NUR ---
PAIN MED MEDICATED FOR SEVERE ABDOMINAL PAIN PER PATIENT'S REQUEST. PT AMBULATED TO THE BATHROOM WITH STEADY GAIT. WILL MONITOR STOOL CONSISTENCY.
--- NOTE | 2019-06-13 05:30 | NUR ---
TAP WATER ENEMA TAP WATER ENEMA GIVEN. STOOL IS LIQUID AND LIGHT YELLOW IN COLOR MIXED WITH BLOOD (PATIENT HAS HER PERIOD). GIVEN EXTRA BRIEFS AND PADS. WILL CONTINUE TO MONITOR STOOL COLOR AND CONSISTENCY.
[2019-06-13] MEDS: MORPHINE 2 MG/ML INJ. SYRINGE IVP PRN ×2 (06:12→09:27)
--- NOTE | 2019-06-13 06:27 | NUR ---
END NOTE AFEBRILE. VS STABLE. NO COMPLAIN OF SOB THROUGHOUT THE NIGHT. MEDICATED FOR PAIN SIX TIMES ALL NIGHT AND FOR NAUSEA ONE TIME. NO VOMITING. BOWEL PREP DONE AND TAP WATER ENEMA GIVEN. STOOL NOW IS LIGHT YELLOW AND LIQUID IN COLOR. NPO AFTER MIDNIGHT. IVF INFUSING. CARE AND MONITORING PROVIDED PER PROTOCOL. CALL LIGHT WITHIN REACH. BED ALARM OFF PER PATIENT'S REQUEST. BED AT LOWEST POSITION AT ALL TIMES. NEEDS ATTENDED. KEPT WARM AND COMFORTABLE.
--- NOTE | 2019-06-13 07:16 | NUR ---
PAIN MED NORMA MEDICATION GIVEN PER PATIENT'S REQUEST. COMFORT MEASURES PROVIDED. MADE PT AWARE OF PROCEDURE TIME WHICH IS 3 PM. NEEDS ATTENDED. NO OTHER COMPLAINTS.
[2019-06-13 08:00] VITALS: BP_SYST 119
--- NOTE | 2019-06-13 08:00 | NUR ---
INITIAL NOTE-Pt awake, alert, and oriented. Updated pt on plan of care. Pt verbalized understanding of procedure to be done at 3pm. Pt complaining of abdominal cramping, will medicate. Denies any n/v. IVF infusing well. Safety precautions in place, bed in low position, call light within reach and encourage to use.
[2019-06-13] MEDS: POLYETHYLENE GLYCOL 3350, 17 GM/ POWD.PACK PO SCH (09:00)
--- NOTE | 2019-06-13 09:27 | NUR ---
Notes-Pain medication given per pts request. Reposition for comfort. will continue to monitor.
[2019-06-13] MEDS: cefTRIAXone 1 GM IVPB PREMIX 50 ML IV SCH (09:34)
[2019-06-13] MEDS: PANTOPRAZOLE SODIUM 40 MG/VIAL (PROTONIX) IVP SCH (09:34)
[2019-06-13] MEDS: SERTRALINE HCL 50 MG TABLET PO SCH (09:34)
[2019-06-13] MEDS: MESALAMINE 400 MG CAPSULE.DR PO SCH (09:35)
[2019-06-13] MEDS: LamoTRIgine 100 MG TABLET PO SCH (09:35)
[2019-06-13] MEDS: D5/0.45 NS 1,000 ML IV SCH (13:41)
--- NOTE | 2019-06-13 15:04 | NUR ---
Notes-Pt picked up for colonoscopy.
--- NOTE | 2019-06-13 17:09 | NUR ---
Nutrition F/U Admitting Diagnosis Crohn's exacerbation Reviewed Pertinent Medical/Surgical Hx Medical Record Patient Medical History Comment: PMH; Crohn's Disease, Pancolitis, Hypothyroidism, GERD, Anxiety and Depression . Pt also found w/: Crohn's Disease Exacerbation, UTI, Hypoalbuminemia and Malnourishment per MD notes. Subjective Information Pt seen resting in bed at time of DI/RD visit with family member at bedside. Pt reported of tolerating current full liquid diet prior to colonoscopy scheduled 06/13/19 and no N/V/C/D. Pt verbalized she follows a gluten-free/low-fiber diet as home diet since November 2018. Pt was interested in receiving Ensure Clear TID with to reach adequate nutritional intake. DI provided additional nutrition education on Crohns disease, gluten-free diet, ONS coupons, and recipes. Pamphlets were left at bedside since patient was not in room at time of nutrition education delivery. Please see Interdisciplinary Teaching record for details. Current Diet Order/Nutrition Support NPO x0 day Patient/Significant Other Able To Verbalize Education Provided Indicated Pertinent Medications Protonix, Miralax, Zoloft, Zofran, D5%/NaCl IV (same) Pertinent Labs BG 103H, BUN 3L, WBC 3.9L (no new labs since 06/10/19) [place]/Adjusted Body Weight 120 lb, 55 kg Recent Weight Change Yes - weight fluctuates d/t altered PO intake 2/2 flare ups per pt Weight Status Appropriate Gastrointestinal Symptoms Nausea Vomiting Diarrhea Last BM Jun 13, 2019 Usual Diet At Home Regular Gluten Free Low Fiber diet per pt Current % PO 81% average x4 meals Estimated Energy Expenditure (kcals/day) 4704-1603 kcal/day (25-30 kcal/kg CBW for maintenance) Estimated Protein Required (g/day) 47-59 gm/day (0.8-1 gm/kg CBW for adult maintenance) Estimated Fluid Required (l/day) 1.5-1.8 L/day (1ml/calorie for maintenance) Problem/Etiology/Signs/Symptoms Altered GI function r/t pathophysiological factors AEB pt's report of abd pain, N/V/D x 6 days. *ongoing Expected Outcomes/Goals Monitor advancement of diet, appetite and PO intake w/ goal of pt meeting at least 75% of estimated nutritional needs, labs trending WNL, normal GI function, skin integrity/wt maintenance. *ongoing Dietitian Recommendations *Consider advance diet to soft (low fiber/bland), low-fat, gluten-free diet w/ Ensure Clear TID if/when medically appropriate *Consider snacks in between meals Follow Up High Risk: F/U in 2-3 days Signed: 06/13/19 at 1710 by Shanique MULLIGAN <Co-Signature Required> Co-Signed: 06/13/19 at [address]
--- NOTE | 2019-06-13 17:11 | NUR ---
Dietitian Recommendations *Consider advance diet to soft (low fiber/bland), low-fat, gluten-free diet w/ Ensure Clear TID if/when medically appropriate *Consider snacks in between meals GUILLERMO, Interface Developer Please refer to Nutrition F/U for details. Signed: 06/13/19 at 1712 by Shanique MULLIGAN <Co-Signature Required> Co-Signed: 06/13/19 at [address]
--- NOTE | 2019-06-13 17:30 | NUR ---
NOTES-PT ARRIVED FROM COLONOSCOPY. PT AWAKE, ALERT AND ORIENTED. FAMILY AT BEDSIDE. VITAL SIGNS STABLE. OFFERED CLEAR LIQUID DIET AND MADE AWARE OF DISCHARGE ORDER. PT AGREED BUT SEEMS UPSET ABOUT DR. SIMON RECOMMENDATION REGARDING PAIN MANAGEMENT AN OUTPATIENT. PER PT, SHE IS NOT A DRUG SEEKER. EDUCATED PT AND FAMILY IN REGARDS OF PAIN MANAGEMENT.
--- NOTE | 2019-06-13 17:40 | NUR ---
NOTES- PT IS TALKING WITH HER PARENTS AT BEDSIDE AND CRYING. PATIENT'S WANTS TO GO HOME NOW. HAS BACKPACK BUT PATIENT REFUSES TO CHECK HER BELONGINGS AT THIS TIME. JUST WANTS TO GO HOME. WILL DO DISCHARGE PAPERWORK.
[2019-06-13 18:13] VITALS: BP_SYST 128
--- NOTE | 2019-06-13 18:15 | NUR ---
DISCHARGE- D/C PT HOME ACCOMPANIED BY HER PARENTS, REFUSED TO BE WHEELED OUT. AMBULATE WITH STEADY GAIT. DENIES ANY PAIN AT THIS TIME. DISCHARGE INSTRUCTION GIVEN AND DISCUSSED WITH PATIENT. ARM BAND AND IVL REMOVED.
== END 2019-06-13 18:15 | disposition home or self-care (01) | DRG 386 ==
LOC: SED 17:55 → SMU 06-08 01:01
PROVIDERS: ADMIT Internal Medicine; ATTEND Internal Medicine
PROC: 0DB68ZX Excision of Stomach, Via Natural or Artificial Opening Endoscopic, Diagnostic (ICD-10-PCS; 2019-06-11)
PROC: 0DB98ZX Excision of Duodenum, Via Natural or Artificial Opening Endoscopic, Diagnostic (ICD-10-PCS; principal; 2019-06-11 15:00)
PROC: 0DBK8ZX Excision of Ascending Colon, Via Natural or Artificial Opening Endoscopic, Diagnostic (ICD-10-PCS; 2019-06-13)
PROC: 0DBL8ZX Excision of Transverse Colon, Via Natural or Artificial Opening Endoscopic, Diagnostic (ICD-10-PCS; 2019-06-13)
PROC: 0DB88ZX Excision of Small Intestine, Via Natural or Artificial Opening Endoscopic, Diagnostic (ICD-10-PCS; 2019-06-13)
DX: K50.90 Crohn's disease, unspecified, without complications (principal); N39.0 Urinary tract infection, site not specified; E44.1 Mild protein-calorie malnutrition; K29.70 Gastritis, unspecified, without bleeding; K21.9 Gastro-esophageal reflux disease without esophagitis; F41.9 Anxiety disorder, unspecified; F32.9 Major depressive disorder, single episode, unspecified; E03.9 Hypothyroidism, unspecified; F41.0 Panic disorder [episodic paroxysmal anxiety]; F90.9 Attention-deficit hyperactivity disorder, unspecified type; R45.850 Homicidal ideations; E88.09 Other disorders of plasma-protein metabolism, not elsewhere classified; I10 Essential (primary) hypertension; Z79.899 Other long term (current) drug therapy; Z68.22 Body mass index [BMI] 22.0-22.9, adult
CPT/HCPCS: 36415; 45380; 80053; 81000-TC; 81025; 83690-TC; 84703; 85007; 85025; 85027; 85610-TC; 85651-TC; 86140; 87040-TC; 87045-TC; 87046; 87081; 87230-TC; 88305; 88312; 88313; 89055; 94010; 94760; 96361; 96375; 96376; 99285; C9113; J0696; J1170; J1885; J2060; J2250; J2270; J2405; J2704; J3010; J7120; Q9964; Q9967

== ENCOUNTER → 2019-12-04 | Emergency (ER) | payer BC, OTHER ==
[~2019-12-04] VITALS: Ht 162.6 cm; Wt 54.4 kg
[~2019-12-04] MED LIST: ADAL40SY SQ; BENI20 IM; DEXT30TA10 PO; LAMO200T2 PO; LEVO50CA2 PO; LORA2TAB95 PO; MESA500C PO; MORPHINE 4 MG/ML INJ. SYRINGE IVP ONE; OMEP40CA33 PO; SERT100T PO; fentaNYL CITRATE/PF 100 MCG/2 ML AMP IVP ONE
--- NOTE | 2019-12-04 19:00 | NUR ---
PATIENT TO [facility] #1
[2019-12-04 19:12] VITALS: BP_SYST 128
--- NOTE | 2019-12-04 19:18 | NUR ---
Patient to ER bed H1 for evaluation. Side rails up.
--- NOTE | 2019-12-04 21:40 | NUR ---
Patient given written and verbal discharge instructions and verbalizes understanding. ER MD Chaney discussed with patient the results and treatment provided. Patient in stable condition. ID arm band removed. Rx of Motrin, [place] given. Patient educated on pain management and to follow up with PMD. Pain Scale 0. Opportunity for questions provided and answered. Medication side effect fact sheet provided.
== END | disposition still patient (30) ==
LOC: SED 18:18
DX: S00.83XA Contusion of other part of head, initial encounter (principal); E03.9 Hypothyroidism, unspecified; K21.9 Gastro-esophageal reflux disease without esophagitis; Z79.899 Other long term (current) drug therapy; W21.03XA Struck by baseball, initial encounter; Y93.64 Activity, baseball; Y92.89 Other specified places as the place of occurrence of the external cause; Y99.8 Other external cause status
CPT/HCPCS: 70486; 81025; 96374; 96375; 99284; J2270; J3010

== ENCOUNTER 2019-12-08 17:41 | Emergency (ER) | payer BC, OTHER ==
[~2019-12-08] VITALS: Ht 162.6 cm; Wt 54.4 kg
[~2019-12-08 17:41] MED LIST changes: -BENI20 IM; -DEXT30TA10 PO; -LAMO200T2 PO; -MESA500C PO; -MORPHINE 4 MG/ML INJ. SYRINGE IVP ONE; -OMEP40CA33 PO; -fentaNYL CITRATE/PF 100 MCG/2 ML AMP IVP ONE
[2019-12-08 19:09] VITALS: BP_SYST 136
--- NOTE | 2019-12-08 19:16 | NUR ---
PATIENT TO WAITING AREA, STABLE, UNCHANGED
--- NOTE | 2019-12-08 21:40 | NUR ---
Pt did not want to wait, Patient left without being seen. No further treatment provided. ER MD aware
== END 2019-12-08 21:40 | disposition left against medical advice (07) ==
LOC: SED 17:41
DX: M25.519 Pain in unspecified shoulder (principal); Z53.21 Procedure and treatment not carried out due to patient leaving prior to being seen by health care provider

== ENCOUNTER 2020-01-01 19:19 | Emergency (ER) | payer BC, OTHER ==
[~2020-01-01] VITALS: Ht 162.6 cm; Wt 54.4 kg
[2020-01-01 19:25] VITALS: BP_SYST 125
[2020-01-01] MEDS ORDERED: HYDROcodone/ACETAMIN 7.5-325 MG TAB PO ONE (20:00)
[2020-01-01] MEDS ORDERED: KETOROLAC TROMETHAMINE 30 MG VIAL IM ONE (20:00)
[2020-01-01] MEDS ORDERED: DIPHENHYDRAMINE INJ 50 MG/ML VIAL IM ONE ×2 (20:15→21:30)
[2020-01-01] MEDS ORDERED: MORPHINE SULFATE 10 MG/ML VIAL IM ONE (20:15)
[2020-01-01] MEDS ORDERED: MORPHINE 4 MG/ML INJ. SYRINGE IM ONE (21:15)
[2020-01-01] MEDS ORDERED: ONDANSETRON 4 MG ODT TAB PO ONE (21:15)
[2020-01-01 21:48] VITALS: BP_SYST 122
== END 2020-01-01 21:51 | disposition home or self-care (01) ==
LOC: SED 19:19
DX: M25.512 Pain in left shoulder (principal); K21.9 Gastro-esophageal reflux disease without esophagitis; E07.9 Disorder of thyroid, unspecified; F41.9 Anxiety disorder, unspecified; Z79.899 Other long term (current) drug therapy
CPT/HCPCS: 73200-TC; 81025; 96372; 99284; J1200; J1885; J2270; Q0162

== ENCOUNTER 2020-01-25 20:54 | Emergency (ER) | payer BC, OTHER ==
[~2020-01-25] VITALS: Ht 162.6 cm; Wt 55.3 kg
[2020-01-25 21:04] VITALS: BP_SYST 122
[2020-01-25] MEDS ORDERED: MORPHINE 2 MG/ML INJ. SYRINGE IVP ONE (21:30)
[2020-01-25] MEDS ORDERED: LORazepam 2 MG/ML VIAL IVP ONE (21:30)
[2020-01-25] MEDS ORDERED: ONDANSETRON HCL 4 MG/2 ML VIAL IVP ONE (21:30)
[2020-01-25] MEDS ORDERED: NACL 0.9% 1,000 ML IV ONE (21:30)
[2020-01-25 21:56] LABS: BASOPHILS % (AUTO) 0.2 % (0.0-2.0); EOSINOPHILS % (AUTO) 0.6 % (0.0-4.0); HEMATOCRIT 38.7 % (36-48); HEMOGLOBIN 13.2 g/dL (12.0-16.0); LYMPHOCYTES # (AUTO) 2.3 K/uL (1.0-5.5); LYMPHOCYTES % (AUTO) 43.9 % (20.5-51.5); MEAN CORPUSCULAR HEMOGLOBIN 31 pg (27-31); MEAN CORPUSCULAR HGB CONC 34 % (32-36); MEAN CORPUSCULAR VOLUME 91 fL (79.0-98.0); MONOCYTES # (AUTO) 0.3 K/uL (0.0-1.0); NEUTROPHILS # (AUTO) 2.7 K/uL (1.8-7.7); NEUTROPHILS % (AUTO) 50.3 % (40.0-70.0); PLATELET COUNT (AUTO) 259 K/uL (130-430); RED BLOOD CELL COUNT(AUTO) 4.25 MIL/uL (4.2-6.2); RED CELL DISTRIBUTION WIDTH 13.2 % (9.0-15.0); WHITE BLOOD COUNT (AUTO) 5.3 K/uL (4.8-10.8)
[2020-01-25] MEDS ORDERED: MORPHINE 4 MG/ML INJ. SYRINGE IVP ONE (22:15)
[2020-01-25 22:18] LABS: ALBUMIN 3.7 g/dL (3.4-4.8); CALCIUM 8.6 mg/dL (8.4-11.0); CREATININE 0.74 mg/dL (0.55-1.30); POTASSIUM 3.7 mmol/L (3.5-5.1); TOTAL BILIRUBIN 0.3 mg/dL (0.0-1.0)
[2020-01-25 22:31] LABS: BILIRUBIN,URINE NEGATIVE (NEGATIVE); COLOR,URINE YELLOW (YELLOW); GLUCOSE,URINE NEGATIVE (NEGATIVE); KETONES,URINE NEGATIVE (NEGATIVE); LEUKOCYTE ESTERASE ,URINE 1+ (NEGATIVE); NITRITE, URINE NEGATIVE (NEGATIVE); PH,URINE 5.5 (5.0-8.0); PROTEIN URINE NEGATIVE (NEGATIVE); UROBILINOGEN,URINE 0.2 (0.2-1.0)
[2020-01-25 22:34] LABS: BLOOD, URINE TRACE (NEGATIVE); CLARITY/URINE SLIGHTLY HAZY (CLEAR)
[2020-01-25 22:42] LABS: BACTERIA,URINE MODERATE /HPF (None Seen); RBC,URINE 0-3 /HPF (0-3)
[2020-01-25] MEDS ORDERED: fentaNYL CITRATE/PF 100 MCG/2 ML AMP IVP ONE (23:45)
[2020-01-26 00:45] VITALS: BP_SYST 118
== END 2020-01-26 00:45 | disposition home or self-care (01) ==
LOC: SED 20:54
DX: K50.90 Crohn's disease, unspecified, without complications (principal); K21.9 Gastro-esophageal reflux disease without esophagitis; E03.9 Hypothyroidism, unspecified; F41.9 Anxiety disorder, unspecified; F32.9 Major depressive disorder, single episode, unspecified; Z79.899 Other long term (current) drug therapy
CPT/HCPCS: 36415; 71045; 74176; 80053; 81000; 81025; 83605; 85025; 87040; 87086; 93005; 96374; 96375; 99285; J2060; J2270 ×2; J2405; J3010; J7030

== ENCOUNTER 2020-02-17 02:59 | Emergency (ER) | payer BC, OTHER ==
[~2020-02-17] VITALS: Ht 162.6 cm; Wt 52.2 kg
[2020-02-17 03:00] VITALS: BP_SYST 129
--- NOTE | 2020-02-17 03:00 | NUR ---
BROUGHT BACK TO BED #7 AND TRIAGED. REPORT GIVEN TO CELSA
--- NOTE | 2020-02-17 03:28 | NUR ---
ER Dr. Chapman at bedside examining patient.
[2020-02-17] MEDS ORDERED: METOCLOPRAMIDE HCL 10 MG/2 ML VIAL IVP ONE (03:30)
[2020-02-17] MEDS ORDERED: NACL 0.9% 1,000 ML IV ONE (03:30)
[2020-02-17] MEDS ORDERED: KETOROLAC TROMETHAMINE 30 MG VIAL IVP ONE (03:30)
--- NOTE | 2020-02-17 03:30 | NUR ---
Pt brought in by POV. Pt states that dropped patient off. pt awake, alert, oriented x4. Pt ambulates with steady gait. Pt states that she had nausea, vomiting, diarrhea, and 9/10 abddominal/flank and epigastric pain. Pt states that she has RX for dilauded, morphine and Percocet but it does not relieve the pain. Pt states she needs IV fluids and Pain medication. Pt states that she has severe Crohns and experiences flare-ups and episodes frequently. Pt states that she wants to be checked out, as the symptoms seem more severe than normal episodes. Resting in ED bed, no acute distress noted. Pt resting in ED bed using telephone, VSS
--- NOTE | 2020-02-17 04:00 | NUR ---
# 20 gauge angiocath placed to left wrist. Use of asceptic technique. Opsite placed over site. Blood return noted. Blood for lab drawn from site. Flushed with 10 cc of normal saline. No evidence of infiltration noted. Patient tolerated well.
--- NOTE | 2020-02-17 04:11 | NUR ---
Received report from SATYA Granados for continuation of care.
[2020-02-17 04:14] LABS: BILIRUBIN,URINE NEGATIVE (NEGATIVE); BLOOD, URINE NEGATIVE (NEGATIVE); CLARITY/URINE CLEAR (CLEAR); COLOR,URINE YELLOW (YELLOW); GLUCOSE,URINE NEGATIVE (NEGATIVE); KETONES,URINE NEGATIVE (NEGATIVE); LEUKOCYTE ESTERASE ,URINE NEGATIVE (NEGATIVE); NITRITE, URINE NEGATIVE (NEGATIVE); PH,URINE 5.5 (5.0-8.0); PROTEIN URINE NEGATIVE (NEGATIVE); UROBILINOGEN,URINE 0.2 (0.2-1.0)
[2020-02-17 04:18] LABS: BASOPHILS % (AUTO) 0.1 % (0.0-2.0); EOSINOPHILS % (AUTO) 0.7 % (0.0-4.0); HEMATOCRIT 36.4 % (36-48); HEMOGLOBIN 12.3 g/dL (12.0-16.0); LYMPHOCYTES # (AUTO) 2.3 K/uL (1.0-5.5); LYMPHOCYTES % (AUTO) 34.4 % (20.5-51.5); MEAN CORPUSCULAR HEMOGLOBIN 31 pg (27-31); MEAN CORPUSCULAR HGB CONC 34 % (32-36); MEAN CORPUSCULAR VOLUME 91 fL (79.0-98.0); MONOCYTES # (AUTO) 0.4 K/uL (0.0-1.0); MONOCYTES % (AUTO) 5.9 % (1.7-9.3); NEUTROPHILS % (AUTO) 58.9 % (40.0-70.0); PLATELET COUNT (AUTO) 299 K/uL (130-430); RED BLOOD CELL COUNT(AUTO) 4.01 MIL/uL (4.2-6.2); RED CELL DISTRIBUTION WIDTH 13.8 % (9.0-15.0); WHITE BLOOD COUNT (AUTO) 6.8 K/uL (4.8-10.8)
[2020-02-17 04:23] LABS: HCG,QUAL RESULT NEGATIVE (NEGATIVE)
[2020-02-17 04:24] LABS: CALCIUM 8.4 mg/dL (8.4-11.0); CREATININE 0.74 mg/dL (0.55-1.30); POTASSIUM 3.4 mmol/L (3.5-5.1)
--- NOTE | 2020-02-17 04:25 | NUR ---
Patient refused Toradol for relief of pain. notified.
[2020-02-17 04:30] LABS: ALBUMIN 3.2 g/dL (3.4-4.8); TOTAL BILIRUBIN 0.1 mg/dL (0.0-1.0)
[2020-02-17 04:34] LABS: BARBITURATE, URINE NEGATIVE (NEG <=200); BENZODIAZEPINE, URINE POSITIVE (NEG <=150); CANNABINOID, URINE NEGATIVE (NEG <=50); COCAINE, URINE NEGATIVE (NEG <=150); METHAMPHETAMINES SCREEN,URINE NEGATIVE (NEG <=500); PHENCYCLIDINE SCREEN,URINE NEGATIVE (NEG <=25); URINE AMPHETAMINE POSITIVE (NEG <=500); URINE METHADONE NEGATIVE (NEG <=200)
[2020-02-17 04:35] LABS: OPIATE, URINE POSITIVE (NEG <=100); UR TRICYCLIC ANTIDEPRESSANTS NEGATIVE (NEG <=300); URINE OXYCODONE SCREEN POSITIVE (NEG <=100); URINE PROPOXYPHENE SCREEN NEGATIVE (NEG <=300)
--- NOTE | 2020-02-17 04:36 | NUR ---
PT PULLED OUT IV, GOT DRESSED AND SEEN RUNNING TO CAR, DRIVING AWAY. PT DID NOT SAY ANYTHING TO ANY STAFF MEMBER. DR HURST NOTIFIED.
== END 2020-02-17 04:36 | disposition left against medical advice (07) ==
LOC: SED 02:59
DX: R10.30 Lower abdominal pain, unspecified (principal); R19.7 Diarrhea, unspecified; E03.9 Hypothyroidism, unspecified; K21.9 Gastro-esophageal reflux disease without esophagitis; Z79.899 Other long term (current) drug therapy
CPT/HCPCS: 36415; 80053; 80307; 81003; 81025; 83690; 84703; 85025; 96361; 96374; 99283; J2765; J7030; J1885

== ENCOUNTER 2021-09-09 21:09 | Emergency (ER) | payer BC, OTHER ==
[~2021-09-09] VITALS: Ht 162.6 cm; Wt 53.1 kg
[2021-09-09 22:29] VITALS: BP_SYST 132
[2021-09-09] MEDS ORDERED: NORMAL SALINE 5 ML DISP.SYRIN IVF SCH (23:00)
--- NOTE | 2021-09-09 23:09 | NUR ---
Patient to ER bed 7 to gown for evaluation. Side rails up.
--- NOTE | 2021-09-09 23:10 | NUR ---
Blood for labwork drawn from conciliator. Patient tolerated well.
--- NOTE | 2021-09-09 23:10 | NUR ---
Patient BIB by family from home. C/O right arm pain x 1 day. Patient reported, discharged from [facility] and claims right arm thrombophlebitis. A/O,X4 right arm swelling, redness, warm to touch, pain rate 8/10.
--- NOTE | 2021-09-09 23:20 | NUR ---
ER Dr. Giraldo at bedside examining patient.
[2021-09-09 23:33] LABS: BASOPHILS % (AUTO) 0.1 % (0.0-2.0); EOSINOPHILS # (AUTO) 0.1 K/uL (0.0-0.4); HEMATOCRIT 28.9 % (36-48); HEMOGLOBIN 9.3 g/dL (12.0-16.0); LYMPHOCYTES # (AUTO) 1.4 K/uL (1.0-5.5); LYMPHOCYTES % (AUTO) 27.3 % (20.5-51.5); MEAN CORPUSCULAR HEMOGLOBIN 27 pg (27-31); MEAN CORPUSCULAR HGB CONC 32 % (32-36); MEAN CORPUSCULAR VOLUME 83 fL (79.0-98.0); MONOCYTES # (AUTO) 0.2 K/uL (0.0-1.0); MONOCYTES % (AUTO) 4.4 % (1.7-9.3); NEUTROPHILS # (AUTO) 3.4 K/uL (1.8-7.7); NEUTROPHILS % (AUTO) 67.2 % (40.0-70.0); PLATELET COUNT (AUTO) 333 K/uL (130-430); RED BLOOD CELL COUNT(AUTO) 3.48 MIL/uL (4.2-6.2); RED CELL DISTRIBUTION WIDTH 18.8 % (9.0-15.0)
[2021-09-09] MEDS ORDERED: PIPERACILLIN/TAZO 3.375 GM in NS 50 ML IV ONE (23:45)
[2021-09-09] MEDS ORDERED: VANCOMYCIN HCL 1,000 MG in NS 250 ML IV ONE (23:45)
[2021-09-09] MEDS ORDERED: PROCHLORPERAZINE EDISYLATE 10 MG/2 ML VIAL IVP ONE (23:45)
[2021-09-09] MEDS ORDERED: NACL 0.9% 1,000 ML IV ONE (23:45)
[2021-09-09] MEDS ORDERED: MORPHINE 4 MG INJ. 4 MG/ML VIAL IVP ONE (23:45)
[2021-09-10 00:09] LABS: CALCIUM 8.8 mg/dL (8.4-11.0); CREATININE 0.62 mg/dL (0.55-1.30); POTASSIUM 3.4 mmol/L (3.5-5.1)
[2021-09-10] MEDS ORDERED: VANCOMYCIN HCL 1000 MG/VIAL IV ONE (00:12)
[2021-09-10] MEDS ORDERED: PIPERACILLIN/TAZOBACTAM 3.375 GM/VIAL (ZOSYN) IV ONE (00:13)
[2021-09-10 00:17] LABS: ALBUMIN 3.7 g/dL (3.4-4.8); TOTAL BILIRUBIN 0.1 mg/dL (0.0-1.0)
--- NOTE | 2021-09-10 00:35 | NUR ---
Ultrasound at bedside.
--- NOTE | 2021-09-10 02:54 | NUR ---
Patient resting quietly. No acute distress noted. Vital signs within normal range.
[2021-09-10] MEDS ORDERED: LOPE2CAP PO (03:24)
[2021-09-10] MEDS ORDERED: PHE25 PO (03:24)
[2021-09-10] MEDS ORDERED: CLIN300C12 PO (03:24)
[2021-09-10] MEDS ORDERED: HYOS0.1275 PO (03:24)
[2021-09-10 03:38] VITALS: BP_SYST 122
--- NOTE | 2021-09-10 03:38 | NUR ---
Patient given written and verbal discharge instructions and verbalizes understanding. ER MD discussed with patient the results and treatment provided. Patient in stable condition. ID arm band removed. IV catheter removed intact and dressing applied, no active bleeding. Rx of CLINDAMYCIN,IMODIUM, PHENERGAN AND LEVSIN-SL given. Patient educated on pain management and to follow up with PMD. Pain Scale 1/10. Opportunity for questions provided and answered. Medication side effect fact sheet provided.
== END 2021-09-10 03:38 | disposition home or self-care (01) ==
LOC: SED 21:09
DX: L03.113 Cellulitis of right upper limb (principal); K50.90 Crohn's disease, unspecified, without complications; E03.9 Hypothyroidism, unspecified; K21.9 Gastro-esophageal reflux disease without esophagitis; F32.9 Major depressive disorder, single episode, unspecified; F41.9 Anxiety disorder, unspecified; Z79.899 Other long term (current) drug therapy; Z88.8 Allergy status to other drugs, medicaments and biological substances; Z88.6 Allergy status to analgesic agent
CPT/HCPCS: 36415; 80053; 83690; 85025; 87040; 93970; 96365; 96366; 96368; 96375; 99284; J0780; J2270; J2543; J3370; J7030

== ENCOUNTER 2022-04-18 21:49 | Emergency (ER) | payer BC, OTHER ==
[~2022-04-18 21:49] MED LIST changes: +CLIN-142 PO; +HYOS0.1275 PO; +LOPE2CAP PO; +PHE25 PO
[2022-04-18 21:54] VITALS: BP_SYST 114
[2022-04-18] MEDS ORDERED: NACL 0.9% 1,000 ML IV ONE (22:15)
[2022-04-18] MEDS ORDERED: PROMETHAZINE INJ.Non-Formulary 25 MG/ML AMP IVP ONE (22:15)
[2022-04-18] MEDS ORDERED: MORPHINE 4 MG INJ. 4 MG/ML VIAL IVP ONE (22:15)
[2022-04-18 22:45] LABS: HEMOGLOBIN 9.7 g/dL (12.0-16.0); MEAN CORPUSCULAR VOLUME 78 fL (79.0-98.0); WHITE BLOOD COUNT (AUTO) 4.3 K/uL (4.8-10.8)
[2022-04-18 23:03] LABS: BASOPHILS % (AUTO) 0.3 % (0.0-2.0); EOSINOPHILS # (AUTO) 0.1 K/uL (0.0-0.4); EOSINOPHILS % (AUTO) 1.2 % (0.0-4.0); HEMATOCRIT 29.9 % (36-48); LYMPHOCYTES # (AUTO) 1.6 K/uL (1.0-5.5); LYMPHOCYTES % (AUTO) 38.3 % (20.5-51.5); MEAN CORPUSCULAR HEMOGLOBIN 25 pg (27-31); MEAN CORPUSCULAR HGB CONC 32 % (32-36); MONOCYTES # (AUTO) 0.4 K/uL (0.0-1.0); MONOCYTES % (AUTO) 9.1 % (1.7-9.3); NEUTROPHILS # (AUTO) 2.2 K/uL (1.8-7.7); NEUTROPHILS % (AUTO) 51.1 % (40.0-70.0); PLATELET COUNT (AUTO) 318 K/uL (130-430); RED BLOOD CELL COUNT(AUTO) 3.86 MIL/uL (4.2-6.2)
[2022-04-18 23:19] LABS: CREATININE 0.76 mg/dL (0.55-1.30); POTASSIUM 3.7 mmol/L (3.5-5.1)
[2022-04-18 23:30] LABS: ALBUMIN 3.2 g/dL (3.4-4.8)
[2022-04-18 23:48] LABS: TOTAL BILIRUBIN 0.2 mg/dL (0.0-1.0)
[2022-04-19] MEDS ORDERED: MORPHINE 4 MG INJ. 4 MG/ML VIAL IVP ONE ×2 (00:15→02:00)
[2022-04-19] MEDS ORDERED: ONDANSETRON HCL 4 MG/2 ML VIAL IVP ONE (00:30)
[2022-04-19] MEDS ORDERED: DIPHENHYDRAMINE INJ 50 MG/ML VIAL IVP ONE (01:30)
[2022-04-19] MEDS ORDERED: DIPHENHYDRAMINE INJ 50 MG/ML VIAL ONE (01:32)
[2022-04-19 02:48] VITALS: BP_SYST 115
== END 2022-04-19 02:48 | disposition home or self-care (01) ==
LOC: SED 21:49
DX: R20.2 Paresthesia of skin (principal); R51.9 Headache, unspecified; R50.9 Fever, unspecified; K21.9 Gastro-esophageal reflux disease without esophagitis; Z88.6 Allergy status to analgesic agent; Z88.8 Allergy status to other drugs, medicaments and biological substances; Z79.899 Other long term (current) drug therapy
CPT/HCPCS: 99285; 96374; 70450; 96361; 80053; 84702; 85025; 36415; 93005; 76376; 96375; 96376; J2270 ×2; J7030; J1200; J2405; 99291; 99292; J2550

== ENCOUNTER 2022-07-09 17:12 | Emergency (ER) | payer BC, OTHER ==
[~2022-07-09] VITALS: Ht 162.6 cm; Wt 59.0 kg
[2022-07-09 17:21] VITALS: BP_SYST 162
--- NOTE | 2022-07-09 17:21 | NUR ---
Placed in room 08 . Placed on seat installer, blood pressure machine and pulse oximeter. To gown for exam. Side rails up.
[2022-07-09] MEDS ORDERED: MORPHINE 4 MG INJ. 4 MG/ML VIAL IVP ONE ×2 (17:45→18:45)
[2022-07-09] MEDS ORDERED: ONDANSETRON HCL 4 MG/2 ML VIAL IVP ONE ×2 (17:45→19:15)
[2022-07-09] MEDS ORDERED: NACL 0.9% 1,000 ML IV ONE (17:45)
--- NOTE | 2022-07-09 18:38 | NUR ---
Met with patient gave her medication after accessing her port a cath. Patient has blood pressure that is labile; gave morphine, zofran and 1 liter of fluid.
[2022-07-09] MEDS ORDERED: PROMETHAZINE INJ.Non-Formulary 25 MG/ML AMP IVP ONE (18:45)
[2022-07-09] MEDS ORDERED: ONDANSETRON HCL 4 MG/2 ML VIAL ONE (19:00)
--- NOTE | 2022-07-09 19:35 | NUR ---
Received report from SATYA Quinteros; assuming care of patient at this time.
--- NOTE | 2022-07-09 19:40 | NUR ---
Patient A/Ox4, VSS, ambulatory, resp even and unlabored. Patient resting in bed with side rails raised. Nad noted at this time.
[2022-07-09] MEDS ORDERED: HYDROCORTISONE SOD SUCC 100 MG/2 ML VIAL IVP ONE (20:15)
[2022-07-09] MEDS ORDERED: PROMETHAZINE HCL 25 MG TABLET PO ONE (20:30)
--- NOTE | 2022-07-09 20:30 | NUR ---
LISA Rodriguez at bedside.
[2022-07-09] MEDS ORDERED: DIPHENHYDRAMINE INJ 50 MG/ML VIAL IVP ONE (21:00)
--- NOTE | 2022-07-09 23:03 | NUR ---
PT IS AA&OX4. AFEBRILE. NAD. W/ PORTACATH ON ZARA. BLOOD DRAWN FR PORTACATH AND SENT TO LAB.
[2022-07-09 23:10] LABS: HEMOGLOBIN 8.3 g/dL (12.0-16.0)
[2022-07-09] MEDS ORDERED: HYDROmorphone 1 MG/ML INJ. CARTRIDGE IVP ONE (23:15)
[2022-07-09 23:18] LABS: BASOPHILS % (AUTO) 0.6 % (0.0-2.0); EOSINOPHILS % (AUTO) 0.7 % (0.0-4.0); HEMATOCRIT 25.1 % (36-48); LYMPHOCYTES % (AUTO) 15.3 % (20.5-51.5); MEAN CORPUSCULAR HEMOGLOBIN 24 pg (27-31); MEAN CORPUSCULAR HGB CONC 33 % (32-36); MEAN CORPUSCULAR VOLUME 73 fL (79.0-98.0); MONOCYTES # (AUTO) 0.2 K/uL (0.0-1.0); MONOCYTES % (AUTO) 2.8 % (1.7-9.3); NEUTROPHILS # (AUTO) 5.2 K/uL (1.8-7.7); NEUTROPHILS % (AUTO) 80.6 % (40.0-70.0); RED BLOOD CELL COUNT(AUTO) 3.46 MIL/uL (4.2-6.2); RED CELL DISTRIBUTION WIDTH 21.9 % (9.0-15.0); WHITE BLOOD COUNT (AUTO) 6.5 K/uL (4.8-10.8)
[2022-07-09 23:25] LABS: PLATELET COUNT (AUTO) 212 K/uL (130-430)
[2022-07-09 23:33] LABS: ANION GAP 8 (5-15); CALCIUM 8.4 mg/dL (8.4-11.0); CHLORIDE 104 mmol/L (98-107); CREATININE 0.74 mg/dL (0.55-1.30); GLUCOSE 107 mg/dL (70-99); UREA NITROGEN, BLOOD 9 mg/dL (8-21)
[2022-07-09 23:38] LABS: ALANINE AMINOTRANSFERASE 16 U/L (12-78); ALBUMIN 3.4 g/dL (3.4-4.8); ASPARTATE AMINOTRANSFERASE 20 U/L (10-37); LIPASE 102 U/L (73-393); TOTAL BILIRUBIN 0.3 mg/dL (0.0-1.0)
[2022-07-09 23:50] LABS: GFR AFRICAN AMERICAN 113 mL/min (>90)
[2022-07-09 23:51] LABS: C-REACTIVE PROTEIN QUANT < 0.2 mg/dL (0-0.5)
[2022-07-10 00:06] LABS: ERYTHROCYTE SEDIMENTATION RATE 31 MM/HR (0-20)
[2022-07-10] MEDS ORDERED: DIPHENHYDRAMINE INJ 50 MG/ML VIAL IVP ONE (00:30)
[2022-07-10 00:47] VITALS: BP_SYST 133
--- NOTE | 2022-07-10 00:47 | NUR ---
Patient given written and verbal discharge instructions and verbalizes understanding. ER MD discussed with patient the results and treatment provided. Patient in stable condition. ID arm band removed. Patient educated on pain management and to follow up with PMD. Pain Scale 0/10. Opportunity for questions provided and answered. Patient A/Ox4, VSS, ambulatory, resp even and unlabored. Patient in stable condition upon discharge.
== END 2022-07-10 00:47 | disposition home or self-care (01) ==
LOC: SED 17:12
DX: M79.10 Myalgia, unspecified site (principal); R11.2 Nausea with vomiting, unspecified; R19.7 Diarrhea, unspecified; K21.9 Gastro-esophageal reflux disease without esophagitis; Z87.39 Personal history of other diseases of the musculoskeletal system and connective tissue; Z86.2 Personal history of diseases of the blood and blood-forming organs and certain disorders involving the immune mechanism; Z88.6 Allergy status to analgesic agent; Z88.8 Allergy status to other drugs, medicaments and biological substances; Z79.899 Other long term (current) drug therapy
CPT/HCPCS: 99285; 96374; 96375; 71045; 96361; 80053; 83690; 85025; 85651; 86140; 36415; 93005; 96376; J1200 ×2; J1720; J2405; J1170; J2270; J7030; J2550; Q0169

== ENCOUNTER 2022-08-24 14:34 | Emergency (ER) | payer BC, OTHER ==
[~2022-08-24] VITALS: Ht 152.4 cm; Wt 45.4 kg
[2022-08-24 14:54] VITALS: BP_SYST 125
--- NOTE | 2022-08-24 15:00 | NUR ---
Pt brought by family, A&Ox4, pt presents to ER with bodyaches and apisode of hives prior arrival , pt states she was getting an infusio for chrons disese today and started to feel body discomfort, pt arrived with respirations even and unlabored, cap refill <3, VSS, respirations even and unlabored, will cont to monitor.
--- NOTE | 2022-08-24 20:00 | NUR ---
CALL PT NAME IN THE WR.NO ANSWER. Patient left without being seen.
== END 2022-08-24 20:00 | disposition left against medical advice (07) ==
LOC: SED 14:34
DX: M79.10 Myalgia, unspecified site (principal); R06.02 Shortness of breath; Z53.21 Procedure and treatment not carried out due to patient leaving prior to being seen by health care provider
CPT/HCPCS: 93005

== ENCOUNTER 2022-11-11 00:24 | Emergency (ER) | payer BC, OTHER ==
[~2022-11-11] VITALS: Ht 162.6 cm; Wt 53.1 kg
[2022-11-11 00:49] VITALS: BP_SYST 143
--- NOTE | 2022-11-11 01:13 | NUR ---
Pt placed in ER bed 5. Report given to SATYA Parekr.
[2022-11-11] MEDS ORDERED: fentaNYL CITRATE/PF 100 MCG/2 ML AMP IM ONE (01:15)
[2022-11-11] MEDS ORDERED: DIPHENHYDRAMINE INJ 50 MG/ML VIAL IVP ONE (02:15)
[2022-11-11] MEDS ORDERED: NACL 0.9% 1,000 ML IV ONE (02:15)
[2022-11-11] MEDS ORDERED: ONDANSETRON HCL 4 MG/2 ML VIAL ONE (02:18)
--- NOTE | 2022-11-11 02:38 | NUR ---
notified primary nurse of recent medication administration.
[2022-11-11] MEDS ORDERED: MORPHINE 4 MG INJ. 4 MG/ML VIAL IVP ONE (04:00)
[2022-11-11] MEDS ORDERED: HYDR-3917 PO (04:36)
[2022-11-11 05:36] VITALS: BP_SYST 130
--- NOTE | 2022-11-11 05:36 | NUR ---
pt C/O Right lower leg pain Hx of chronic back pain Pt DC per MD's order DC instructionstions given to pt Pt verbalized understanding AOX4 VSS Able to make needs known NAD at this time Pt medicated Pt exited ED in stable gait
== END 2022-11-11 05:36 | disposition home or self-care (01) ==
LOC: SED 00:24
DX: T80.89XA Other complications following infusion, transfusion and therapeutic injection, initial encounter (principal); M54.50 Low back pain, unspecified; M45.9 Ankylosing spondylitis of unspecified sites in spine; K21.9 Gastro-esophageal reflux disease without esophagitis; Z86.39 Personal history of other endocrine, nutritional and metabolic disease; Z88.6 Allergy status to analgesic agent; Z88.8 Allergy status to other drugs, medicaments and biological substances; Z79.899 Other long term (current) drug therapy
CPT/HCPCS: 99285; 96374; 72131; 96361; 96375; 76376; 81025; J1200; J2405; J3010; J2270; J7030

== ENCOUNTER 2022-11-30 01:25 | Emergency (ER) | payer OTHER ==
[~2022-11-30] VITALS: Ht 162.6 cm; Wt 54.4 kg
[~2022-11-30 01:25] MED LIST changes: +HYDR-3917 PO
--- NOTE | 2022-11-30 01:32 | NUR ---
Patient to ER bed 5 to gown for evaluation. Side rails up.
[2022-11-30 01:37] VITALS: BP_SYST 132
--- NOTE | 2022-11-30 01:48 | NUR ---
placed on hand fabric cutter, b/p, pulse ox
--- NOTE | 2022-11-30 01:48 | NUR ---
Patient triaged and placed in room 5. VSS and patient appears in no acute distress at this time. Accompanied by FAMILY, awaiting available bed, and MD notified of need for MSE.
[2022-11-30] MEDS ORDERED: MORPHINE 4 MG INJ. 4 MG/ML VIAL IVP ONE ×2 (03:00→05:00)
[2022-11-30] MEDS ORDERED: NACL 0.9% 1,000 ML IV ONE (03:00)
[2022-11-30] MEDS ORDERED: ONDANSETRON HCL 4 MG/2 ML VIAL IVP ONE (03:00)
[2022-11-30 03:25] LABS: CHLORIDE 103 mmol/L (98-107)
[2022-11-30 03:46] LABS: BASOPHILS % (AUTO) 0.3 % (0.0-2.0); EOSINOPHILS % (AUTO) 0.6 % (0.0-4.0); HEMATOCRIT 36.3 % (36-48); HEMOGLOBIN 12.1 g/dL (12.0-16.0); LYMPHOCYTES # (AUTO) 1.4 K/uL (1.0-5.5); MEAN CORPUSCULAR HEMOGLOBIN 29 pg (27-31); MEAN CORPUSCULAR HGB CONC 33 % (32-36); MEAN CORPUSCULAR VOLUME 87 fL (79.0-98.0); MONOCYTES # (AUTO) 0.3 K/uL (0.0-1.0); MONOCYTES % (AUTO) 8.3 % (1.7-9.3); NEUTROPHILS # (AUTO) 2.1 K/uL (1.8-7.7); NEUTROPHILS % (AUTO) 53.8 % (40.0-70.0); PLATELET COUNT (AUTO) 224 K/uL (130-430); RED BLOOD CELL COUNT(AUTO) 4.16 MIL/uL (4.2-6.2); WHITE BLOOD COUNT (AUTO) 3.9 K/uL (4.8-10.8)
[2022-11-30 04:04] LABS: ANION GAP 13 (5-15); CALCIUM 9.2 mg/dL (8.4-11.0); CREATININE 0.57 mg/dL (0.55-1.30); GLUCOSE 86 mg/dL (70-99); UREA NITROGEN, BLOOD 10 mg/dL (8-21)
[2022-11-30 04:11] LABS: ALANINE AMINOTRANSFERASE 57 U/L (12-78); ALBUMIN 3.9 g/dL (3.4-4.8); ASPARTATE AMINOTRANSFERASE 56 U/L (10-37); TOTAL BILIRUBIN 0.2 mg/dL (0.0-1.0)
[2022-11-30 04:18] LABS: GFR AFRICAN AMERICAN 153 mL/min (>90)
--- NOTE | 2022-11-30 05:57 | NUR ---
Patient given written and verbal discharge instructions and verbalizes understanding. ER MD discussed with patient the results and treatment provided. Patient in stable condition. ID arm band removed. IV catheter removed intact and dressing applied, no active bleeding. Rx of given. Patient educated on pain management and to follow up with PMD. Pain Scale . Opportunity for questions provided and answered. Medication side effect fact sheet provided.
== END 2022-11-30 05:57 | disposition home or self-care (01) ==
LOC: SED 01:25
DX: M54.6 Pain in thoracic spine (principal); R06.02 Shortness of breath; R11.0 Nausea; K21.9 Gastro-esophageal reflux disease without esophagitis; Z88.6 Allergy status to analgesic agent; Z88.8 Allergy status to other drugs, medicaments and biological substances; Z79.899 Other long term (current) drug therapy
CPT/HCPCS: 99284; 96374; 96361; 96375; 80053; 83880; 85025; 85379; 84484; 36415; 93005; 96376; J2405; J2270; J7030